=== PATIENT | female | born 1960 | race Caucasian/White ===

== ENCOUNTER 2018-08-03 12:48 | Emergency (ER) | payer SELFPAY ==
[2018-08-03 12:50] VITALS: BP 112/82; PULSE 67; RESP 16; TEMP 36.3; O2SAT 100; BMI 21.7
--- NOTE | 2018-08-03 13:33 | ED.RN ---
PT APPROACHES TRIAGE DESK STATING I HAVEN'T SEEN ANYBODY, I CAN BANDAGE MYSELF AND I THINK I CAN STILL GET AN XRAY AT THE URGENT CARE. PT WITNESSED AMBULATING WITHOUT ISSUE OUT OF DEPARTMENT.
== END 2018-08-03 13:34 | disposition left against medical advice (07) ==
LOC: ED 13:40
PROVIDERS: Emergency Provider Emergency Medicine; PCP Physician Assistant
DX: M79.89 Other specified soft tissue disorders (principal)

== ENCOUNTER → 2019-04-16 09:15 | Outpatient (CLI) | payer OTHER, SELFPAY ==
[2019-04-07 16:34] VITALS: BMI 21.7
--- NOTE | 2019-04-16 09:16 | NM_ITS ---
CLINICAL: 58-year-old female with reported history of clinical hyperparathyroidism. 99m Tc SESTAMIBI DUAL PHASE PARATHYROID SCINTIGRAPHY COMPARISON: None available FINDINGS: Following the intravenous administration of 24.5 mCi of 99m Tc sestamibi, image acquisitions of the anterior neck at 20 minutes and 2.0 hours post radiopharmaceutical provision reveal: 1. Immediate static blood pool acquisitions demonstrate relatively uniform distribution of the radiopharmaceutical throughout the right-left lobes of a vaguely U-shaped thyroid gland. 2. Delayed images depict symmetric near complete washout of the radiotracer from the previously defined right and left thyroid colloid. No focal retention of the radiopharmaceutical is readily identified. NM/Parathyroid Scan IMPRESSION: 1. NEGATIVE-NORMAL 99m Tc SESTAMIBI PARATHYROID IMAGING DUAL PHASE EXAMINATION. 2. There is no definitive typical scintigraphic evidence of parathyroid adenoma on the current evaluation. Electronically Signed: Hossein Norwood DO at 22:00 EST Tel , Service support ,
== END ==
PROVIDERS: Family Provider Physician Assistant; PCP Physician Assistant; Referring Provider Internal Medicine Endocrinology, Diabetes & Metabolism; Visit Provider Internal Medicine Endocrinology, Diabetes & Metabolism
DX: E21.0 Primary hyperparathyroidism (principal)
CPT/HCPCS: 78070; A9500

== ENCOUNTER 2024-07-20 19:30 | Emergency (ER) | payer MEDICARE, SELFPAY ==
[2024-07-20 19:33] VITALS: BP 130/56; PULSE 68; RESP 18; TEMP 36.1; O2SAT 100; BMI 22.6
--- NOTE | 2024-07-20 19:42 | EX.ED.GENINJ ---
HPI History of Present Illness Chief Complaint: Laceration Detail of Chief Complaint: Flap type laceration distal aspect right ring finger Informant: patient Onset/Context/Timing Onset: Today and Hours Mechanism/Context: Incised (Cutting potatoes) Location of pain/injuries: Right hand Location: Distal right ring finger Current Severity: Mild Maximum Severity: Mild Worsened by: Not applicable Relieved by: Not applicable Associated Symptoms Associated Symptoms: Negative for Parasthesias, Weakness, Loss of function, Inability to ambulate or Loss of consciousness Narrative Narrative: Patient is a 64-year-old akrwv-awji-nfausrki woman. She presents with laceration distal aspect of the right ring finger. There is no subungual hematoma noted. She denies paresthesia anesthesia. She is bleeding. She is not on an anticoagulant. Prior similar symptoms: No Recent Illness/Hospitalization: No [facility] Medical History (Updated 07/20/24 @ 20:[address] Jose Elias Flores MD) Arthritis Kidney stones Acid reflux Hypercalcemia Home Medications ?Medication ?Instructions ?Recorded ?Last Taken ?Type ascorbic acid (vitamin C) 500 mg See Rx Instructions PO .COMPLEX 04/07/19 Unknown History capsule PRN kierra cholecalciferol (vitamin D3) 50 2,000 unit PO DAILY 04/07/19 Unknown History mcg (2,000 unit) tablet lansoprazole 30 mg capsule,delayed 30 mg PO DAILY 04/07/19 Unknown History release (Prevacid) multivitamin 1 cap PO DAILY 04/07/19 Unknown History triamcinolone acetonide 0.5 % 1 applic topical BID 04/07/19 Unknown History topical cream vit C-vit [id number] capsule cap PO 04/07/19 Unknown History denosumab 60 mg/mL subcutaneous 60 mg subcut [id number] #1 mL 04/15/19 Unknown Rx syringe (Prolia) Allergy/AdvReac Type Severity Reaction Status Date / Time shellfish derived Allergy Anaphylaxis Verified 07/20/24 19:33 cat dander AdvReac Other Verified 07/20/24 19:33 Family History Father Cancer Heart disease Sister Thyroid disorder Mother Hypertension Osteoporosis Surgical History History of tonsillectomy Social History Smoking Status: Never smoker alcohol intake: never substance use type: does not use what type of physical activity do you participate in: running frequency: daily ROS ROS ED Constitutional Constitutional ED: Denies chills, fever(s), subjective, sweats or weight loss Integumentary Reports other Details: Laceration distal right ring finger ; Denies abscess, Abrasions or rash Neurologic Neurologic: Denies paresthesias Hematologic/Lymphatic Hematologic/Lymphatic: Denies easy bleeding or easy bruising EXAM Physical Exam Const Vital Signs: 07/20/24 19:33 Temperature 97 F L Temperature Source Temporal Pulse Rate 68 Respiratory Rate 18 Blood Pressure 130/56 H Blood Pressure Mean 80 Pulse Ox 100 Positive well nourished and well developed General Appearance ED: well developed and NAD HEENT atraumatic Eyes PERRL and EOMs intact bilaterally Resp normal respiratory effort Cardio regular rhythm Rate: regular rate Extremity Negative for normal to inspection Extremity Narrative: Flap-like laceration distal aspect of the right ring finger. Capillary fill is normal. Sensation is normal. The extensor commonness tendon is functionally intact. The flexor digitorum superficialis and flexor digitorum profundus are intact. Neuro oriented x3, CN's II-XII intact bilaterally and moves all extremities Psych mental status grossly normal and thought process normal Skin Skin Narrative: Detailed description under the procedure note PROC Procedures Other Procedures Procedure(s): Patient has a flap type laceration ulnar volar side of the distal right ring finger. The digit was anesthetized with lidocaine by digital block. Wound was cleansed. Using 5-0 Ethilon a total of 5 stitches placed with good cosmesis hemostasis. Patient was told there is a slight area that appears to be deep xu/avascular and may become necrotic. Total length of laceration 2.2 cm MDM MDM MDM Narrative Medical decision making narrative: Patient with laceration that will require repair. Discharge Plan Triage Chief Complaint: Laceration ED Provider: Jose Elias Flores Dx/Rx/DC Orders Clinical Impression: Laceration of right ring finger Prescriptions: No Action lansoprazole [Prevacid] 30 mg capsule,delayed release(DR/EC) 30 mg PO DAILY triamcinolone acetonide 0.5 % cream 1 applic TOPICAL BID multivitamin Capsule 1 cap PO DAILY ascorbic acid (vitamin C) 500 mg capsule See Rx Instructions PO .COMPLEX PRN (Reason: kierra) Rx Instructions: 500 PO daily PRN; vit C-vit C-wcmxlv-[id number] Capsule PO cholecalciferol (vitamin D3) 2,000 unit tablet 2,000 unit PO DAILY Prolia 60 mg/mL syringe 60 mg SC [id number] Qty: 1 1RF Rx Instructions: [employer] authorization number [id number] for 2 injections prior to 04-07-2020 Primary Care Provider: Cheri Brooke Referrals: Cheri Brooke PA [Primary Care Provider] - 10 Day for suture removal Activity Restrictions/Additional Instructions: 1. Keep finger clean and dry for the next 2 to 3 days. 2. Apply bacitracin ointment in the morning at night 3. Sutures out in 10 days. 4. There is an area where the blood supply appears compromised and may result in skin . Print Language: [place]ian Disposition Disposition: Home, Self Care
[2024-07-20] MEDS: Lidocaine 1% (20 ml mdv) 20 ML Vial INFILT (20:26)
[2024-07-20 20:27] VITALS: BP 119/75; PULSE 65; RESP 16; TEMP 36.1; O2SAT 96
== END 2024-07-20 20:27 | disposition home or self-care (01) ==
LOC: ED 20:07
PROVIDERS: Emergency Provider Emergency Medicine; PCP Registered Nurse; Visit Provider Emergency Medicine
DX: S61.214A Laceration without foreign body of right ring finger without damage to nail, initial encounter (principal); K21.9 Gastro-esophageal reflux disease without esophagitis; W26.8XXA Contact with other sharp object(s), not elsewhere classified, initial encounter; Y93.G9 Activity, other involving cooking and grilling
CPT/HCPCS: 12001; 99283